=== PATIENT | male | born 1960 | race Caucasian/White ===

== ENCOUNTER 2023-04-27 12:38 | Emergency (ER) | payer OTHER, SELFPAY ==
[2023-04-27 12:48] VITALS: BP 133/69; PULSE 75; RESP 20; TEMP 37.7; O2SAT 97
--- NOTE | 2023-04-27 13:22 | ED.URI ---
HPI - URI/Sore Throat General Chief Complaint: Upper Respiratory Infection Stated Complaint: Headache,Chills,Congestion Time Seen by Provider: 04/27/23 13:23 Source: patient, RN notes reviewed and old records reviewed Mode of arrival: ambulatory Limitations: no limitations History of Present Illness HPI Narrative: 89 year old male presents to [facility] care with complaints of 3 day history of cough, congestion, fever, some body aches and sweats with chills and sweats. Patient reports that he has had fevers ranging up to 101F. Patient reports no known ill contacts. Patient reports that he has taken some Aspirin for his symptoms. Patient reports that he knows of no known ill contacts. MD elicited complaint: cough and sore throat Onset (ago): day(s) (3) Description of mucous: clear Able to tolerate fluids by mouth: Yes Treatments prior to arrival: other (aspirin) Related Data Home Medications Medication Instructions Recorded Confirmed empagliflozin 25 mg tablet 25 mg PO DAILY 04/27/23 04/27/23 (Jardiance) metformin 500 mg tablet,extended 1,000 mg PO BID 04/27/23 04/27/23 release 24 hr Allergies Allergy/AdvReac Type Severity Reaction Status Date / Time No Known Allergies Allergy Verified 04/27/23 13:11 Review of Systems Review of Systems: CONSTITUTIONAL: Reports malaise, chills, sweats, or fever. EYES: Denies visual changes, redness, or discharge. ENT: Reports rhinorrhea, congestion, sinus pain,no otalgia and positive for some sore throat. CARDIOVASCULAR: Denies chest pain, palpitations, or edema. RESPIRATORY: Reports cough.? Denies dyspnea. GASTROINTESTINAL: Denies abdominal pain, nausea, vomiting, diarrhea SKIN: Denies rash or itching. MUSCULOSKELETAL: Reports myalgia. NEUROLOGIC: reports headache. All systems reviewed & are unremarkable except as noted in HPI and below PMFSH Past Medical History Medical History (Updated 04/27/23 @ 15:06 by Anat Taylor NP) Diabetes Hyperlipidemia Social History Social History (Updated 04/27/23 @ 20:09 by Anat Taylor NP) Smoking status: Never smoker Living arrangements: with family Comments At time of signature, agree with nursing past medical, surgical, social and family history. There is no relevant family history pertinent to the presenting complaint Exam Narrative: GENERAL: Well-appearing, well-nourished, and in no acute distress. HEAD: Normocephalic EYES: PERRLA, conjunctivae clear ENT: Nares clear, turbinates edematous and erythematous, clear discharge. Mucous membranes moist. TM pearly nunez with dull light reflex bilaterally; no tragal tenderness. Oropharynx erythematous without lesions. Tonsils not enlarged and without exudate, no drooling, no hoarseness, no trismus, uvula midline. NECK: Supple. No lymphadenopathy CHEST: Clear to auscultation, breath sounds equal. No wheezing, rhonchi, rales, or stridor. No respiratory distress, speaks in full sentences.harsh cough SAO2 97% on room air HEART: Regular rate and rhythm. No murmur heard. SKIN: Warm, dry, no rash. NEURO: Alert and oriented x3. PSYCH: Normal mood and affect Course Course Emergency Course: Patient is aware of diagnosis, understands and agrees to treatment plan.? Anticipatory guidance given.? Patient agrees to follow-up as directed and is aware of reasons to seek care at the emergency department. Portions of this record may have been created with voice recognition software Level of Care: Express Care Visit Vital Signs Vital signs: Vital Signs Temperature 37.7 C H 04/27/23 12:48 Pulse Rate 75 04/27/23 12:48 Respiratory Rate 20 04/27/23 12:48 Blood Pressure 133/69 04/27/23 12:48 Pulse Oximetry 97 04/27/23 12:48 Oxygen Delivery Room Air 04/27/23 12:48 Temperature 37.7 C H 04/27/23 12:48 Pulse Rate 75 04/27/23 12:48 Respiratory Rate 20 04/27/23 12:48 Blood Pressure 133/69 04/27/23 12:48 Pulse Oxim
== END 2023-04-27 13:36 | disposition home or self-care (01) ==
PROVIDERS: Emergency Provider Registered Nurse
DX: U07.1 COVID-19 (principal); E11.9 Type 2 diabetes mellitus without complications; E78.5 Hyperlipidemia, unspecified
CPT/HCPCS: 87426; 87804; 99213; C9803; G0463